=== PATIENT | female | born 1990 | race Two or more races ===

== ENCOUNTER 2018-04-30 06:17 | Emergency (ER) | payer BC, OTHER ==
[~2018-04-30] VITALS: Ht 160 cm; Wt 79.0 kg
[2018-04-30 06:19] VITALS: BP 133/91
[2018-04-30] MEDS ORDERED: VIT B12 (06:22)
[2018-04-30] MEDS ORDERED: VIT D 3 (06:22)
[2018-04-30] MEDS ORDERED: HYDROcodone/APAP 5/325 TABLET PO ONE (07:00)
[2018-04-30] MEDS ORDERED: HYDROcodone/APAP 5/325 TABLET ONE (07:04)
== END 2018-04-30 07:19 | disposition home or self-care (01) ==
LOC: ED 07:18
DX: H60.12 Cellulitis of left external ear (principal)
CPT/HCPCS: 99283